=== PATIENT | female | born 1975 | race Caucasian/White ===

== ENCOUNTER 2019-04-23 11:06 | Outpatient (CLI) | payer OTHER ==
--- NOTE | 2019-04-24 09:42 | Mammography Report ---
BILATERAL DIGITAL DIAGNOSTIC MAMMOGRAM WITH CAD -- 04/23/2019 BILATERAL COMPLETE BREAST ULTRASOUND INDICATION: Bilateral asymmetries identified at screening mammography. F/U abnormal mammogram TECHNIQUE: Digital bilateral mammographic imaging was performed. Spot compression views were obtaine d. Complete ultrasound of all four (4) quadrants was performed. This examination was interpreted with the benefit of Computer-Aided Detection (CAD) analysis. COMPARISON: 04/04/2019 screening mammogram FINDINGS: Breast Density: The breasts are heterogeneously dense, which may obscure small masses. MAMMOGRAPHIC FINDINGS: Lateral and spot compression MLO and CC views of each breast were performed. P artial effacement of bilateral circumscribed asymmetries. No architectural distortion or suspicious c alcifications. ULTRASOUND FINDINGS: Complete sonographic evaluation of all 4 quadrants and retroareolar region was p erformed. Ultrasound of the right breast demonstrated numerous benign cysts. The largest is at 10:0 0 4 cm from the nipple measuring 1.9 x 0.9 x 2.9 cm. A benign cyst at 8:00 5 cm from the nipple measu res 1.6 x 0.6 x 1.8 cm. An oval heterogeneous hypoechoic solid mass at 5:00 at the edge of the areola measures 1.1 x 0.5 x 1.0 cm. No other solid masses of the right breast. Ultrasound of the left breast demonstrated numerous benign cysts. The largest is at 1:00 retroareolar and it measures 2.5 x 2.3 x 1.1 cm. A complex cyst at 5:00 5 cm from the nipple measures 4 x 4 by 4 mm. Echogenic material layers dependently in the cyst. A cyst at 7:00 4 cm from the nipple measures 1 .9 x 1.9 x 1.9 cm. IMPRESSION: 1. A solid right breast mass at 5:00 at the edge of the areola measuring 1.1 cm. Recommend ultrasound -guided needle core biopsy. 2. Numerous bilateral benign cysts. I discussed the findings and the recommendation for ultrasound-guided needle biopsy of the right reza st with Dr. Vásquez at the time of the exam. Follow up recommendation: Biopsy BI-RADS Category 4: Suspicious for Malignancy. A "normal" or negative report should not discourage follow up or biopsy of a clinically significant f inding. A written summary of these findings will be mailed to the patient. The patient will be entered into a mammography reporting system which will generate a reminder letter for the patient's next appointmen t at the appropriate interval. According to the [employer], yearly mammograms are recommended starting at age 40 and continuing as long as a woman is in good health. Breast MRI is recommended for women with an jason roximately 20-25% or greater lifetime risk of breast cancer, including women with a strong family his tory of breast or ovarian cancer and women who have been treated for Hodgkin's disease. Signer Name: Haroldo Durant MD Signed: 04/24/2019 9:38 AM Workstation Name: [id number]
== END 2019-04-23 11:07 | disposition home or self-care (01) ==
LOC: SPVWC 11:06
PROVIDERS: ATTEND Surgery
DX: N60.02 Solitary cyst of left breast (principal); N60.01 Solitary cyst of right breast; N63.41 Unspecified lump in right breast, subareolar
CPT/HCPCS: 77066

== ENCOUNTER 2019-04-26 08:11 | Outpatient (CLI) | payer OTHER | END 2019-04-26 08:12 | disposition home or self-care (01) | LOC: LABHHL 08:11 | PROVIDERS: ATTEND Surgery | DX: N63.10 Unspecified lump in the right breast, unspecified quadrant (principal) | CPT/HCPCS: 88305 ==